=== PATIENT | female | born 1935 ===

== ENCOUNTER 2017-04-06 14:24 | Outpatient (CLI) | payer OTHER | END 2017-04-06 14:33 | disposition home or self-care (01) | LOC: RAD 14:24 | DX: M54.5 Low back pain (principal) ==

== ENCOUNTER 2018-02-13 13:52 | Outpatient (CLI) | payer OTHER | END 2018-02-13 14:01 | disposition home or self-care (01) | LOC: RAD 13:52 | DX: S79.812A Other specified injuries of left hip, initial encounter (principal); S79.811A Other specified injuries of right hip, initial encounter ==